=== PATIENT | male | born 1985 | race Hispanic/Latino ===

== ENCOUNTER 2017-08-30 08:36 | Emergency (ER) | payer OTHER ==
[2017-08-30 08:56] VITALS: O2SAT 100
--- NOTE | 2017-08-30 09:09 | ED PDOC ---
HPI: Chest Pain Time Seen by Provider: 08/30/17 08:53 Chief Complaint (Nursing): Shortness Of Breath Additional Complaint(s): Mr. Knox is a 32 year old male who presents to the ED for chest pain with palpitations tremulously since last night. Mild shortness of breath. Patient states he stopped smoking 3 days ago after smoking 1 pack a day for many years. PMD: Provider [facility] Past Medical History Reviewed: Historical Data, Nursing Documentation, Vital Signs Vital Signs: Last Vital Signs Temp Pulse 80 08/30/17 08:51 Resp 20 08/30/17 08:51 BP 125/72 08/30/17 08:51 Pulse Ox 100 08/30/17 10:28 - Medical History PMH: No Chronic Diseases - Surgical History Surgical History: Tonsillectomy - Family History Family History: States: Unknown Family Hx - Social History Current smoker - smoking cessation education provided: No (Patient states stop smoking 3 days ago) Alcohol: Social Drugs: Denies - Home Medications Home Medications: Ambulatory Orders Medication Instructions Recorded Nicotine 21 mg/24 hr [Nicoderm CQ] 21 mg TD DAILY 14 Days #14 patch 08/30/17 - Allergies Allergies/Adverse Reactions: Allergies Allergy/AdvReac Type Severity Reaction Status Date / Time No Known Allergies Allergy Verified 08/30/17 08:56 Review of Systems ROS Statement: Except As Marked, All Systems Reviewed And Found Negative Cardiovascular: Positive for: Chest Pain, Palpitations Respiratory: Positive for: Shortness of Breath (Mild) Physical Exam - Reviewed Nursing Documentation Reviewed: Yes Vital Signs Reviewed: Yes - Physical Exam Cardiovascular/Chest: Positive for: Regular Rate, Rhythm Respiratory: Positive for: Normal Breath Sounds (Lungs clear) Gastrointestinal/Abdominal: Positive for: Normal Exam, Soft. Negative for: Tenderness Extremity: Positive for: Normal ROM (Full ROM), Other (tremulousness). Negative for: Calf Tenderness, Swelling Neurologic/Psych: Positive for: Alert, Oriented (X 3). Negative for: Motor/ Sensory Deficits - Laboratory Results Result Diagrams: 08/30/17 09:45 08/30/17 09:45 - ECG O2 Sat by Pulse Oximetry: 100 (RA) Pulse Ox Interpretation: Normal Medical Decision Making Medical Decision Making: Time: 09:01 Plan: - EKG - CMP - Troponin I Stat - CBC - D-Dimer - Chest X-Ray Time: 09:36 Chest X-Ray FINDINGS: LUNGS: No active pulmonary disease. PLEURA: No significant pleural effusion identified. No pneumothorax apparent. CARDIOVASCULAR: Normal. OSSEOUS STRUCTURES: No significant abnormalities. VISUALIZED UPPER ABDOMEN: Normal. OTHER FINDINGS: None. IMPRESSION: No active disease. Scribe Attestation: Documented by Hank Wen, acting as a scribe for Juan José Mendez MD. Provider Scribe Attestation: All medical record entries made by the Scribe were at my direction and personally dictated by me. I have reviewed the chart and agree that the record accurately reflects my personal performance of the history, physical exam, medical decision making, and the department course for this patient. I have also personally directed, reviewed, and agree with the discharge instructions and disposition. Disposition - Clinical Impression Clinical Impression: Nicotine dependence unspecified, with withdrawal, Anxiety - Patient ED Disposition Is Patient to be Admitted: No Counseled Patient/Family Regarding: Studies Performed, Diagnosis, Need For Followup, Rx Given - Disposition Referrals: [facility] [Outside] Disposition: Routine/Home Disposition Time: 11:22 Condition: FAIR Prescriptions: Nicotine 21 mg/24 hr [Nicoderm CQ] 21 mg TD DAILY 14 Days #14 patch Instructions: Drugs to Help You Stop Using Tobacco, Anxiety, Adult (DC), Nicotine Forms: [employer] (French)
--- NOTE | 2017-08-30 09:38 | RAD ---
HISTORY: chest pain COMPARISON: No prior. TECHNIQUE: Chest PA and lateral FINDINGS: LUNGS: No active pulmonary disease. PLEURA: No significant pleural effusion identified. No pneumothorax apparent. CARDIOVASCULAR: Normal. OSSEOUS STRUCTURES: No significant abnormalities. VISUALIZED UPPER ABDOMEN: Normal. OTHER FINDINGS: None. IMPRESSION: No active disease.
[2017-08-30 09:51] LABS: BASO % 0.8 % (0.0-2.0); EOS # 0.1 K/uL (0.0-0.7); EOS % 1.5 % (0.0-4.0); HEMOGLOBIN 15.8 g/dL (12.0-18.0); LYMPH % 43.1 % (20.0-40.0); MEAN CELL VOLUME 97.1 fl (80.0-94.0); MEAN CORPUSCULAR HEMOGLOBIN 34.2 pg (27.0-31.0); MEAN CORPUSCULAR HGB CONC 35.2 g/dL (33.0-37.0); MEAN PLATELET VOLUME 7.9 fl (7.2-11.7); MONO # 0.4 K/uL (0.0-0.8); MONO % 9.2 % (0.0-10.0); NEUT # 2.2 K/uL (1.8-7.0); NEUT % 45.4 % (50.0-75.0); NRBC % 0.2 % (0.0-0.0); RBC 4.61 Mil/uL (4.40-5.90); RED CELL DISTRIBUTION WIDTH 13.3 % (11.5-14.5); WHITE BLOOD COUNT 4.8 K/uL (4.8-10.8)
[2017-08-30 10:07] LABS: ALB/GLOB RATIO 1.2 (1.0-2.1); ALBUMIN 4.6 g/dL (3.5-5.0); ALT/SGPT 83 U/L (21-72); AST/SGOT 61 U/L (17-59); BLOOD UREA NITROGEN 12 mg/dl (9-20); GFR AFRICAN-AMERICAN > 60; GFR NON-AFRICAN AMERICAN > 60
[2017-08-30 12:02] VITALS: BP 126/76; PULSE 78; RESP 18; TEMP 98
--- NOTE | 2017-08-30 17:57 | CARD ---
APPROVED REPORT EKG Measurement Heart [id number] <Conclusion> Normal sinus rhythm with sinus arrhythmia Early repolarization Normal ECG
== END 2017-08-30 12:02 | disposition home or self-care (01) ==
LOC: H.ER 08:36
DX: F17.203 Nicotine dependence unspecified, with withdrawal (principal); F41.9 Anxiety disorder, unspecified

== ENCOUNTER 2018-02-02 07:45 | Emergency (ER) | payer OTHER ==
[2018-02-02] MEDS ORDERED: Sodium Chloride 0.9% 1,000 ML IV STA (08:34)
--- NOTE | 2018-02-02 08:41 | ED PDOC ---
HPI:Nausea, Vomiting, Diarrhea Time Seen by Provider: 02/02/18 07:59 Chief Complaint (Nursing): GI Problem Chief Complaint (Provider): Nausea, Vomiting, Diarrhea History Per: Patient History/Exam Limitations: no limitations Onset/Duration Of Symptoms: Days Current Symptoms Are (Timing): Still Present Quality Of Discomfort: Cramping Associated Symptoms: Fever, Nausea, Vomiting, Diarrhea Additional Complaint(s): 32 year old male presents to the ED for an evaluation of diarrhea and bloody stool onset Wednesday morning at 10am. Patient reports on Wednesday, he had intermittent fever and one episode of vomiting as well and bloody stool. He took Tylenol for the fever and Aleve. On Wednesday, he went to Urgent Care and was diagnosed with intestinal infection. He states the fever resolved but he still had nausea, diarrhea and vomiting. Today, at 4am patient had his 5th bowel movement which he states the stool was not red as the first two bowel movements he had. Denies shortness of breath, chills, dizziness, palpitations or recent travel. PMD: No Family Provider Past Medical History Reviewed: Historical Data, Nursing Documentation, Vital Signs Vital Signs: Last Vital Signs Temp 99.5 F 02/02/18 08:09 Pulse 89 02/02/18 08:09 Resp 18 02/02/18 08:09 BP 119/72 02/02/18 08:09 Pulse Ox 100 02/02/18 08:09 - Medical History PMH: No Chronic Diseases - Surgical History Surgical History: Tonsillectomy - Family History Family History: States: Unknown Family Hx - Social History Current smoker - smoking cessation education provided: Yes Alcohol: < 2 Drinks/Day Drugs: Denies - Home Medications Home Medications: Ambulatory Orders Medication Instructions Recorded Atropine/Diphenoxylate [Lonox 1 tab PO Q4H PRN #20 tab 02/02/18 0.025 MG-2.5 MG] - Allergies Allergies/Adverse Reactions: Allergies Allergy/AdvReac Type Severity Reaction Status Date / Time No Known Allergies Allergy Verified 02/02/18 08:09 Review of Systems ROS Statement: Except As Marked, All Systems Reviewed And Found Negative Constitutional: Positive for: Fever. Negative for: Chills Cardiovascular: Negative for: Palpitations Respiratory: Negative for: Shortness of Breath Gastrointestinal: Positive for: Nausea, Vomiting, Abdominal Pain, Diarrhea, Other (5 bloody bowel movement) Neurological: Negative for: Dizziness Physical Exam - Reviewed Nursing Documentation Reviewed: Yes Vital Signs Reviewed: Yes - Physical Exam Appears: Positive for: Non-toxic, No Acute Distress Head Exam: Positive for: ATRAUMATIC, NORMAL INSPECTION, NORMOCEPHALIC Skin: Positive for: Normal Color, Warm, Dry Eye Exam: Positive for: EOMI, Normal appearance, PERRL ENT: Positive for: Normal ENT Inspection Neck: Positive for: Normal, Painless ROM, Supple. Negative for: Decreased ROM Cardiovascular/Chest: Positive for: Regular Rate, Rhythm. Negative for: Murmur Respiratory: Positive for: Normal Breath Sounds. Negative for: Decreased Breath Sounds, Wheezing, Respiratory Distress Gastrointestinal/Abdominal: Positive for: Normal Exam, Soft. Negative for: Tenderness, Guarding, Rebound Back: Positive for: Normal Inspection Extremity: Positive for: Normal ROM. Negative for: Tenderness, Pedal Edema, Deformity Neurologic/Psych: Positive for: Alert, Oriented (x3). Negative for: Motor/ Sensory Deficits - Laboratory Results Result Diagrams: 02/02/18 08:48 02/02/18 08:48 - ECG O2 Sat by Pulse Oximetry: 100 (RA) Pulse Ox Interpretation: Normal - Progress Re-evaluation Time: 10:16 Condition: Improving,but remains with symptoms Medical Decision Making Medical Decision Making: Time: 833 Initial Impression: gastroenteritis, virus, food poisoning Initial Plan: --CMP --ED Urine Dipstick --CBC w/ Differential --Normal Saline 999 mls/hr --IV Insertion --Occult Blood, Stool, ER Stat --Reevaluation Scribe Attestation: Documented by Skylar Mann, acting as a scribe for Michelle Arzola MD Provider Scribe Attestation: All medical record entries made by the Scribe were at my direction and personally dictated by me. I have reviewed the chart and agree that the record accurately reflects my personal performance of the history, physical exam, medical decision making, and the department course for this patient. I have also personally directed, reviewed, and agree with the discharge instructions and disposition. Disposition - Clinical Impression Clinical Impression: Gastroenteritis - Patient ED Disposition Is Patient to be Admitted: No Doctor Will See Patient In The: Office Counseled Patient/Family Regarding: Diagnosis, Need For Followup, Rx Given - Disposition Referrals: Isabel Gonzalez MD [Staff Provider] - [facility] [place] [Outside] Disposition: Routine/Home Disposition Time: 10:00 Condition: STABLE Additional Instructions: Take the anti-nausea medication prescribed at the urgent care center as needed. Take OTC Peptobismal for diarrhea. Use prescribed anti-diarrheal medication only as needed. Prescriptions: Atropine/Diphenoxylate [Lonox 0.025 MG-2.5 MG] 1 tab PO Q4H PRN #20 tab PRN Reason: Diarrhea Instructions: Nausea and Vomiting, Adult, Diarrhea in Adolescents and Adults Forms: [employer] (German), [facility] ED School/Work Excuse - POA Present On Arrival: None
[2018-02-02 08:59] LABS: BASO % 0.2 % (0.0-2.0); EOS # 0.1 K/uL (0.0-0.7); EOS % 0.7 % (0.0-4.0); HEMOGLOBIN 14.4 g/dL (12.0-18.0); LYMPH # 1.5 K/uL (1.0-4.3); LYMPH % 17.8 % (20.0-40.0); MEAN CELL VOLUME 97.3 fl (80.0-94.0); MEAN CORPUSCULAR HEMOGLOBIN 34.6 pg (27.0-31.0); MEAN CORPUSCULAR HGB CONC 35.6 g/dL (33.0-37.0); MEAN PLATELET VOLUME 8.2 fl (7.2-11.7); MONO # 1.1 K/uL (0.0-0.8); MONO % 13.4 % (0.0-10.0); NEUT # 5.6 K/uL (1.8-7.0); NEUT % 67.9 % (50.0-75.0); NRBC % 0.1 % (0.0-0.0); RBC 4.16 Mil/uL (4.40-5.90); RED CELL DISTRIBUTION WIDTH 12.6 % (11.5-14.5); WHITE BLOOD COUNT 8.2 K/uL (4.8-10.8)
[2018-02-02 09:33] LABS: ALB/GLOB RATIO 1.3 (1.0-2.1); ALT/SGPT 38 U/L (21-72); AST/SGOT 27 U/L (17-59); BLOOD UREA NITROGEN 6 mg/dl (9-20); CALCIUM 9.4 mg/dL (8.4-10.2); GFR AFRICAN-AMERICAN > 60; GFR NON-AFRICAN AMERICAN > 60
[2018-02-02 11:03] VITALS: BP 120/86; PULSE 78; RESP 14; TEMP 99; O2SAT 98
== END 2018-02-02 11:03 | disposition home or self-care (01) ==
LOC: H.ER 07:45
DX: K52.9 Noninfective gastroenteritis and colitis, unspecified (principal)
CPT/HCPCS: 80053; 85025; 96360; 99284; J7030

== ENCOUNTER 2018-03-06 05:46 | Emergency (ER) | payer OTHER ==
[2018-03-06 06:10] VITALS: RESP 18
[2018-03-06] MEDS ORDERED: Absorbable Gelatin Sponge Size 12-7 ONE (07:20)
--- NOTE | 2018-03-06 07:20 | ED PDOC ---
Upper Extremity Pain/Injury Time Seen by Provider: 03/06/18 07:10 Chief Complaint (Nursing): Finger,Hand,&Wrist Chief Complaint (Provider): Finger,Hand,&Wrist History Per: Patient History/Exam Limitations: no limitations Onset/Duration Of Symptoms: Days (2) Additional Complaint(s): 33 years old male presents to the ED for evaluation of laceration of left middle finger onset 2 days. Patient reports he cut his finger with vegetable amena and has been bleeding since then. PMD: non provided Past Medical History Reviewed: Historical Data, Nursing Documentation, Vital Signs Vital Signs: Last Vital Signs Temp 98.2 F 03/06/18 05:55 Pulse 78 03/06/18 05:55 Resp 18 03/06/18 05:55 BP 117/75 03/06/18 05:55 Pulse Ox 98 03/06/18 05:55 - Medical History PMH: No Chronic Diseases - Surgical History Surgical History: No Surg Hx, Tonsillectomy - Family History Family History: States: Unknown Family Hx - Home Medications Home Medications: Ambulatory Orders Medication Instructions Recorded Atropine/Diphenoxylate [Lonox 1 tab PO Q4H PRN #20 tab 02/02/18 0.025 MG-2.5 MG] - Allergies Allergies/Adverse Reactions: Allergies Allergy/AdvReac Type Severity Reaction Status Date / Time No Known Allergies Allergy Verified 02/02/18 08:09 Review of Systems ROS Statement: Except As Marked, All Systems Reviewed And Found Negative Skin: Positive for: Other (Laceration of left middle finger associated with bleeding) Physical Exam - Reviewed Nursing Documentation Reviewed: Yes Vital Signs Reviewed: Yes - Physical Exam Appears: Positive for: Non-toxic, No Acute Distress Extremity: Positive for: Normal ROM, Capillary Refill (normal), Other (Left middle finger 1 cm x 5 cm laceration to medial aspect of tip) Neurologic/Psych: Positive for: Alert, Oriented (x3). Negative for: Motor/ Sensory Deficits - ECG O2 Sat by Pulse Oximetry: 98 (RA) Pulse Ox Interpretation: Normal Medical Decision Making Medical Decision Making: Scribe Attestation: Documented by Catina Knowles, acting as a scribe for Juan José Mendez MD. Provider Scribe Attestation: All medical record entries made by the Scribe were at my direction and personally dictated by me. I have reviewed the chart and agree that the record accurately reflects my personal performance of the history, physical exam, medical decision making, and the department course for this patient. I have also personally directed, reviewed, and agree with the discharge instructions and disposition. Disposition - Clinical Impression Clinical Impression: Laceration - Patient ED Disposition Is Patient to be Admitted: No - Disposition Referrals: [facility] [Outside] Disposition: Routine/Home Disposition Time: 08:00 Condition: FAIR Instructions: Wound Care Forms: [facility] ([place])
[2018-03-06 07:59] VITALS: BP 120/73; PULSE 77; TEMP 97.8
[2018-03-06 10:54] VITALS: O2SAT 98
== END 2018-03-06 07:57 | disposition home or self-care (01) ==
LOC: H.ER 05:46
DX: S61.213A Laceration without foreign body of left middle finger without damage to nail, initial encounter (principal); W26.8XXA Contact with other sharp object(s), not elsewhere classified, initial encounter; Y92.000 Kitchen of unspecified non-institutional (private) residence as the place of occurrence of the external cause